=== PATIENT | female | born 1990 | race Caucasian/White ===

== ENCOUNTER 2022-04-09 11:10 | Emergency (ER) | payer OTHER, SELFPAY ==
[2022-04-09 11:20] VITALS: BP 109/71; PULSE 88; RESP 16; TEMP 36.2; O2SAT 98
--- NOTE | 2022-04-09 12:10 | ED.SKABFB ---
HPI - Skin/Abscess/Foreign Bdy General Chief complaint: Skin/Abscess/Foreign Body Stated complaint: poison racheal Time Seen by Provider: 04/09/22 12:11 Source: patient Mode of arrival: ambulatory Limitations: no limitations History of Present Illness HPI narrative: 31-year-old female presents with complaint of poison racheal rash to left forearm, right ankle, abdomen, chest for 4 days. Rash to right ankle is weeping and red, tender. Concern for infection. Has been applying calamine lotion with no relief. States rash started after working in backyard. All systems reviewed and negative except as noted above. Related Data Home Medications Medication Instructions Recorded Confirmed amlodipine 5 mg tablet 5 mg PO DAILY 11/27/19 11/27/19 buspirone 10 mg tablet 10 mg PO DAILY 11/27/19 11/27/19 fluoxetine 20 mg capsule (Prozac) 20 mg PO TID 11/27/19 11/27/19 paliperidone palmitate 234 mg/1.5 234 mg IM Q30D 11/27/19 11/27/19 mL intramuscular syringe (Invega Sustenna) trazodone 100 mg tablet 100 mg PO DAILY 11/27/19 11/27/19 ergocalciferol (vitamin D2) 1,250 cap 04/09/22 mcg (50,000 unit) capsule (Vitamin D2) folic acid 1 mg tablet tablet 04/09/22 Allergies Allergy/AdvReac Type Severity Reaction Status Date / Time ibuprofen Allergy Severe ibuprofen Verified 11/27/19 12:42 ([id number]) metronidazole Allergy Intermediate HAND Verified 11/27/19 12:42 SWELLING AND NUMBNESS Review of Systems Review of Systems: CONSTITUTIONAL: Denies fever, chills, or sweats. EYES: Denies visual changes, redness, or discharge. ENT: Denies rhinorrhea, congestion, sore throat, or otalgia. CARDIOVASCULAR: Denies chest pain, palpitations, or edema. RESPIRATORY: Denies cough or dyspnea. GASTROINTESTINAL: Denies abdominal pain, nausea, vomiting, or diarrhea. GENITOURINARY: Denies dysuria or hematuria. SKIN: Reports rash and itching. MUSCULOSKELETAL: Denies back pain, joint pain, or myalgia. NEUROLOGIC: Denies headache, numbness, or weakness. PSYCHIATRIC: Denies anxiety or depression. All other systems reviewed are negative, except as documented in HPI. [facility] Family History Family History (Updated 02/04/11 @ 09:34 by DOCTOR UNKNOWN) Other Depression Family history of allergic disorder Hypertension Social History Social History Alcohol intake: never Gender identity (if verbalized by the patient): Female Comments At time of signature, agree with nursing past medical, surgical, social and family history. There is no relevant family history pertinent to the presenting complaint. Exam Narrative: GENERAL: This is a well-nourished, well-developed patient, in no apparent distress. HEAD: normocephalic, atraumatic. EYES: PERRL. Sclera clear/white. Vision is grossly intact. EARS: External ears normal NOSE: External nose normal NECK: Neck supple, non-tender without lymphadenopathy, masses or thyromegaly. CARDIOVASCULAR: Regular rate and rhythm without murmurs, gallops, or rubs. RESPIRATORY: Clear to auscultation. Breath sounds equal bilaterally. No wheezes, rales, or rhonchi. SKIN: warm, Dry, intact with good texture and turgor. Erythematous vesicular rash to left anterior forearm, anterior right ankle, left lower abdomen, left side chest. Rash to right ankle is swollen, weeping, erythematous. NEURO: awake, alert, and oriented to person, place and time. There were no obvious focal neurologic abnormalities. EXTREMITIES: Normal range of motion to all extremities. Course Course Level of Care: Express Care Visit Vital Signs Vital signs: Vital Signs Temperature 36.2 C L 04/09/22 11:20 Pulse Rate 88 04/09/22 11:20 Respiratory Rate 16 04/09/22 11:20 Blood Pressure 109/71 04/09/22 11:20 Pulse Oximetry 98 04/09/22 11:20 Oxygen Delivery Room Air 04/09/22 11:20 Temperature 36.2 C L 04/09/22 11:20 Pulse Rate 88 04/09/22 11:20 Respiratory Rate 16 04/09/22 11:20 Blood Pre
== END 2022-04-09 12:22 | disposition home or self-care (01) ==
PROVIDERS: Emergency Provider Nurse Practitioner Family
DX: L25.5 Unspecified contact dermatitis due to plants, except food (principal); I10 Essential (primary) hypertension; Z86.16 Personal history of COVID-19
CPT/HCPCS: 99213; G0463

== ENCOUNTER 2023-04-26 10:44 | Emergency (ER) | payer OTHER, SELFPAY ==
[2023-04-26 10:54] VITALS: BP 126/78; PULSE 99; RESP 16; TEMP 36.7; O2SAT 99
--- NOTE | 2023-04-26 10:55 | ED.SKABFB ---
HPI - Skin/Abscess/Foreign Bdy General Chief complaint: Skin/Abscess/Foreign Body Stated complaint: Pain & swelling in hands & heels Time Seen by Provider: 04/26/23 10:55 Source: patient Mode of arrival: ambulatory Limitations: no limitations History of Present Illness HPI narrative: 32 yo F presents with c/o pain, swelling and redness to palms of hands for several weeks. Also reports the redness and swelling to her right thumb. 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 Does not feel that symptoms are related to that. Used a chemical yesterday for cleaning but has used chemical in the past. denies itching. denies use of any new products, food. no recent insect bite or gardening. All systems reviewed and negative except as noted above. Related Data Home Medications Medication Instructions Recorded Confirmed fluoxetine 20 mg capsule (Prozac) 20 mg PO TID 11/27/19 11/27/19 paliperidone palmitate 234 mg/1.5 234 mg IM Q30D 11/27/19 11/27/19 mL intramuscular syringe (Invega Sustenna) ergocalciferol (vitamin D2) 1,250 cap 04/09/22 mcg (50,000 unit) capsule (Vitamin D2) folic acid 1 mg tablet tablet 04/09/22 Norvasc 04/26/23 buspirone 30 mg tablet mg 04/26/23 haloperidol 5 mg tablet mg 04/26/23 Allergies Allergy/AdvReac Type Severity Reaction Status Date / Time ibuprofen Allergy Severe ibuprofen Verified 04/26/23 11:30 ([id number]) metronidazole Allergy Intermediate HAND Verified 04/26/23 10:55 SWELLING AND NUMBNESS Review of Systems Review of Systems: CONSTITUTIONAL: Denies fever, chills, or sweats. EYES: Denies visual changes, redness, or discharge. ENT: Denies rhinorrhea, congestion, sore throat, or otalgia. CARDIOVASCULAR: Denies chest pain, palpitations, or edema. RESPIRATORY: Denies cough or dyspnea. GASTROINTESTINAL: Denies abdominal pain, nausea, vomiting, or diarrhea. GENITOURINARY: Denies dysuria or hematuria. SKIN: Denies rash or itching.Reports redness, swelling and tenderness to palms of hands, right thumb. MUSCULOSKELETAL: Denies back pain, joint pain, or myalgia. NEUROLOGIC: Denies headache, numbness, or weakness. PSYCHIATRIC: Denies anxiety or depression. All other systems reviewed are negative, except as documented in HPI. [facility] Family History Family History (Updated 02/04/11 @ 09:34 by DOCTOR UNKNOWN) Other Depression Family history of allergic disorder Hypertension Social History Social History Alcohol intake: never Gender identity (if verbalized by the patient): Female Comments At time of signature, agree with nursing past medical, surgical, social and family history. There is no relevant family history pertinent to the presenting complaint. Exam Narrative: GENERAL: This is a well-nourished, well-developed patient, in no apparent distress. HEAD: normocephalic, atraumatic. EYES: PERRL. Sclera clear/white. Vision is grossly intact. EARS: External ears normal NOSE: External nose normal NECK: Neck supple, non-tender without lymphadenopathy, masses or thyromegaly. CARDIOVASCULAR: Regular rate and rhythm without murmurs, gallops, or rubs. RESPIRATORY: Clear to auscultation. Breath sounds equal bilaterally. No wheezes, rales, or rhonchi. NEURO: awake, alert, and oriented to person, place and time. There were no obvious focal neurologic abnormalities. EXTREMITIES: areas of erythema, swelling, tenderness to palms of hands. no open wounds or drainage. decreased ROM to R thumb due to pain. Course Course Level of Care: Express Care Visit Vital Signs Vital signs: Vital Signs Temperature 36.7 C 04/26/23 10:54 Pulse Rate 99 04/26/23 10:54 Respiratory Rate 16 04/26/23 10:54 Blood Pressure 126/78 04/26/23 10:54 Pulse Oximetry 99 04/26/23 10:54 Oxygen Delivery Room Air 04/26/23 10:54 Temperature 36.7 C 04/26/23 10:54 Pulse Rate 99 04/26/23 10:54 Respiratory Rate 16
== END 2023-04-26 11:23 | disposition home or self-care (01) ==
PROVIDERS: Emergency Provider Nurse Practitioner Family; PCP Internal Medicine
DX: R21 Rash and other nonspecific skin eruption (principal); I10 Essential (primary) hypertension; F41.9 Anxiety disorder, unspecified; F32.A Depression, unspecified; Z86.16 Personal history of COVID-19; F20.9 Schizophrenia, unspecified
CPT/HCPCS: 99213; G0463

== ENCOUNTER 2023-05-08 17:34 | Emergency (ER) | payer MEDICARE, MEDICAID, SELFPAY ==
[2023-05-08 18:00] VITALS: BP 129/87; PULSE 89; RESP 16; TEMP 36.7; O2SAT 98
--- NOTE | 2023-05-08 19:04 | ED.SKABFB ---
HPI - Skin/Abscess/Foreign Bdy General Chief complaint: Skin/Abscess/Foreign Body Stated complaint: painful hands Time Seen by Provider: 05/08/23 19:04 Source: patient Mode of arrival: ambulatory Limitations: no limitations History of Present Illness HPI narrative: 32 y/o female presented for c/o redness and swelling in patches to bilateral hands for over one month. Patient was seen for the same about 2 weeks ago, given steroid and abx, which helped, but after completing the steroid pack 2 days ago -which she took a tablet of each day, she reports the symptoms are returning but the redness is on different parts of the hands. Reports decreased range of motion with flexing due to the swelling. Patient is scheduled to follow-up with her PCP regarding the symptoms, but not until 05/17/2023. Denies lip, tongue, or throat swelling, shortness of breath or wheezing. Denies changes to soap, detergent, lotion, or any other exposures. No one else in the house or any contacts with similar symptoms. Related Data Home Medications Medication Instructions Recorded Confirmed fluoxetine 20 mg capsule (Prozac) 20 mg PO TID 11/27/19 11/27/19 paliperidone palmitate 234 mg/1.5 234 mg IM Q30D 11/27/19 11/27/19 mL intramuscular syringe (Invega Sustenna) ergocalciferol (vitamin D2) 1,250 cap 04/09/22 mcg (50,000 unit) capsule (Vitamin D2) folic acid 1 mg tablet tablet 04/09/22 Norvasc 04/26/23 buspirone 30 mg tablet mg BID 04/26/23 haloperidol 5 mg tablet mg 04/26/23 Allergies Allergy/AdvReac Type Severity Reaction Status Date / Time ibuprofen Allergy Severe ibuprofen Verified 05/08/23 18:52 ([id number]) metronidazole Allergy Intermediate HAND Verified 05/08/23 18:52 SWELLING AND NUMBNESS Review of Systems Review of Systems: CONSTITUTIONAL: Denies body aches, fever, chills, or sweats. EYES: Denies visual changes, redness, or discharge. ENT: Denies rhinorrhea, congestion CARDIOVASCULAR: Denies chest pain, palpitations, or edema. RESPIRATORY: Denies cough or dyspnea. GASTROINTESTINAL: Denies abdominal pain, nausea, vomiting, or diarrhea. SKIN: Per HPI MUSCULOSKELETAL: Denies back pain, joint pain, or myalgia. NEUROLOGIC: Denies headache, numbness, tingling, or weakness. [facility] Past Medical History Medical History (Updated 05/08/23 @ 20:10 by Amanda Ward APRN) Anxiety and depression Hypertension Schizophrenia Surgical History Surgical History (Updated 05/08/23 @ 20:10 by Amanda Ward APRN) Hx of tonsillectomy Family History Family History Other Depression Family history of allergic disorder Hypertension Social History Social History Alcohol intake: never Gender identity (if verbalized by the patient): Female Comments At time of signature, I have reviewed and agree with nursing past medical, surgical, social and family history unless otherwise noted. Please see nursing chart for further information. There is no relevant family history pertinent to the presenting complaint Exam Narrative: GENERAL: Well-appearing HEAD: Normocephalic, atraumatic. EYES: conjunctivae clear, and EOMI. ENT: Mucous membranes moist. Oropharynx without edema, erythema or lesions. NECK: Supple. No lymphadenopathy CHEST: Clear to auscultation. HEART: Regular rate and rhythm. SKIN: Warm, dry. Left palm with erythematous patch over the 5th metacarpal; right palm with erythematous patch over the 2nd digit proximal phalanx, mild swelling and tenderness to the sites, no lesions/open areas/nodules, slightly limited ROM to the hands due to swelling NEURO: Alert and oriented x3. Course Course Emergency Course: Patient is aware of diagnosis, understands and agrees to treatment plan. Anticipatory guidance given. Patient agrees to follow-up as directed and is awar
== END 2023-05-08 19:28 | disposition home or self-care (01) ==
PROVIDERS: Emergency Provider Nurse Practitioner Family
DX: M79.642 Pain in left hand (principal); M79.641 Pain in right hand; I10 Essential (primary) hypertension; F41.9 Anxiety disorder, unspecified; F32.A Depression, unspecified; F20.9 Schizophrenia, unspecified
CPT/HCPCS: 99213; G0463

== ENCOUNTER 2023-08-05 10:24 | Emergency (ER) | payer MEDICARE, MEDICAID, SELFPAY ==
--- NOTE | ~2023-08-05 | XR_ITS ---
EXAMINATION: XR knee LT min 4V DATE: 08/05/2023 11:02 INDICATION: Left knee pain TECHNIQUE: Four views of the left knee were obtained. COMPARISON: None. FINDINGS: Alignment is normal. No fracture or osteochondral lesion. Joint spaces are normal with no e rosions. No joint effusion/synovitis. Soft tissues are unremarkable. IMPRESSION: 1. No acute osseous abnormality. Reviewed, dictated and finalized at location F.
--- NOTE | 2023-08-05 10:28 | ED.LOWEXIN ---
HPI - Extremity Injury (Lower) General Chief Complaint: Extremity Injury, Lower Stated Complaint: Fall Left Knee Pain Time Seen by Provider: 08/05/23 10:55 Source: patient and RN notes reviewed Mode of arrival: ambulatory Limitations: no limitations History of Present Illness HPI Narrative: 33-year-old female presents with concern for injury to her left knee. Reports she tripped and fell today landing on her knee. Reports she used ice, knee brace without relief. Reports anterior knee pain and popping in the back and sides of her knee. She reports pain at rest, worsening pain with weight-bearing, flexion and extension. MD complaint: knee injury Related Data Home Medications Medication Instructions Recorded Confirmed fluoxetine 20 mg capsule (Prozac) 20 mg PO TID 11/27/19 08/05/23 ergocalciferol (vitamin D2) 1,250 1 cap PO DAILY 04/09/22 08/05/23 mcg (50,000 unit) capsule (Vitamin D2) folic acid 1 mg tablet 1 tablet PO DAILY 04/09/22 Norvasc 1 cap PO DIRECTED 04/26/23 08/05/23 buspirone 30 mg tablet 30 mg PO BID 04/26/23 08/05/23 haloperidol 5 mg tablet 5 mg PO DAILY 04/26/23 08/05/23 Allergies Allergy/AdvReac Type Severity Reaction Status Date / Time metronidazole Allergy Intermediate HAND Verified 08/05/23 10:32 SWELLING AND NUMBNESS Review of Systems Review of Systems: CONSTITUTIONAL: Denies malaise, chills, sweats, or fever. SKIN: Denies rash or itching, open skin, laceration, abrasion, redness, warmth, swelling. MUSCULOSKELETAL: Reports left knee pain NEUROLOGIC: Denies numbness, weakness All systems reviewed & are unremarkable except as noted in HPI and below PMFSH Past Medical History Medical History (Updated 08/05/23 @ 11:27 by Syeda Lim NP) Anxiety and depression Hypertension Schizophrenia Surgical History Surgical History (Updated 05/08/23 @ 20:10 by Amanda Garza APRN) Hx of tonsillectomy Family History Family History Other Depression Family history of allergic disorder Hypertension Social History Social History Alcohol intake: never Gender identity (if verbalized by the patient): Female Comments At time of signature, agree with nursing past medical, surgical, social and family history. There is no relevant family history pertinent to the presenting complaint Exam Narrative: GENERAL: Well-appearing, well-nourished, and in no acute distress. HEAD: Normocephalic, atraumatic. EYES: PERRLA, conjunctivae clear NECK: Supple. CHEST: Speaks in full sentences. No respiratory distress. HEART: Regular rate and rhythm. Normal and equal peripheral pulses. EXTREMITIES: Left knee has normal strength and sensation, grossly normal range of motion. Mild edema, no erythema, warmth, or ecchymosis. Normal sensation with sensitivity to light touch and pain. Anterior tenderness. No open wounds, no skin tenting, no devitalized tissue or atrophy, no trophic changes, no obvious deformity, alignment normal, nearby joints and structures intact. Distal pulses palpable and equal bilaterally, skin warm, dry, pink. Capillary refill less than 3 seconds. SKIN: Warm, dry, no rash. NEURO: Alert and oriented x3. PSYCH: Normal mood and affect Course Course Emergency Course: Patient is aware of diagnosis, understands and agrees to treatment plan. Anticipatory guidance given. Patient agrees to follow-up as directed and is aware of reasons to seek care at the emergency department. Portions of this record may have been created with voice recognition software Level of Care: Express Care Visit Vital Signs Vital signs: Reviewed. MDM - Extremity Injury (Lower) MDM Narrative Medical decision making narrative: Patients injury and pain is consistent with musculoskeletal etiology. No signs of neurological or vascular compromise on exam. Compartments and tissu
[2023-08-05 10:40] VITALS: BP 124/74; PULSE 77; RESP 16; TEMP 36.6; O2SAT 98
== END 2023-08-05 11:30 | disposition home or self-care (01) ==
PROVIDERS: Emergency Provider Nurse Practitioner; PCP Nurse Practitioner Family
DX: S83.92XA Sprain of unspecified site of left knee, initial encounter (principal); I10 Essential (primary) hypertension; Z79.899 Other long term (current) drug therapy; W01.0XXA Fall on same level from slipping, tripping and stumbling without subsequent striking against object, initial encounter
CPT/HCPCS: 73564; 99213; G0463

== ENCOUNTER 2024-09-12 11:05 | Emergency (ER) | payer OTHER, SELFPAY ==
[2024-09-12 11:22] VITALS: BP 122/79; PULSE 79; RESP 16; TEMP 36.1; O2SAT 97
--- NOTE | 2024-09-12 11:31 | ED.DENTAL ---
HPI - Dental/Oral General Chief complaint: Dental/Oral Stated complaint: left side tooth pain Time Seen by Provider: 09/12/24 11:30 Source: patient Mode of arrival: ambulatory Limitations: no limitations History of Present Illness HPI Narrative: Temi is a 34-year-old patient presenting to the clinic today with complaints of left-sided dental pain. They report that your having left posterior upper dental pain. Symptoms have been going on for the past few days but they been trying to save up money to go see the dentist over the past couple months. No fever or chills. Related Data Home Medications Medication Instructions Recorded Confirmed fluoxetine 20 mg capsule (Prozac) 20 mg PO TID 11/27/19 09/12/24 ergocalciferol (vitamin D2) 1,250 1 cap PO DAILY 04/09/22 09/12/24 mcg (50,000 unit) capsule (Vitamin D2) folic acid 1 mg tablet 1 tablet PO DAILY 04/09/22 09/12/24 Norvasc 1 cap PO DIRECTED 04/26/23 09/12/24 buspirone 30 mg tablet 30 mg PO BID 04/26/23 09/12/24 haloperidol 5 mg tablet 5 mg PO DAILY 04/26/23 09/12/24 haloperidol decanoate 100 mg/mL mg IM 09/12/24 intramuscular solution Allergies Allergy/AdvReac Type Severity Reaction Status Date / Time metronidazole Allergy Intermediate HAND Verified 09/12/24 11:34 SWELLING AND NUMBNESS Review of Systems Review of Systems: Pertinent positives per HPI. Patient denies any fever, chills, rash, headache, visual changes, dizziness, cough, runny nose, sore throat, shortness of breath, chest pain, palpitations, nausea, vomiting, diarrhea, constipation, abdominal pain, or any urinary issues. [facility] Past Medical History Medical History (Updated 09/12/24 @ 11:35 by Quentin Brewer APRN) Anxiety and depression Hypertension Schizophrenia Surgical History Surgical History Hx of tonsillectomy Family History Family History Other Depression Family history of allergic disorder Hypertension Social History Social History Alcohol intake: never Gender identity (if verbalized by the patient): Female Comments At the time of my signature, I reviewed and agree with the nursing past medical, surgical, social, and family history. There is no relevant family history pertinent to the patient complaint. Exam Narrative: General: Well-developed, well nourished, in no apparent distress Head: Normocephalic, atraumatic Eyes: Pupils equally round and reactive to light bilaterally, EOM intact, sclera and conjunctive clear, no discharge, lids normal Ears: TMs intact and clear, ear canals clear, no drainage, grossly hearing normal. Nose: Nares patent, no discharge, no inflammation, no sinus tenderness. Mouth: Oropharynx without lesions or masses, very poor dentition, MMM. Dental infection to the left upper posterior tooth with surrounding swelling, no palpable abscess Neck: Supple, trachea midline, no enlargement of anterior or posterior cervical nodes, no thyroid masses or goiter palpable. Cardio: Regular rate and rhythm, s1 and s2 normal, no murmur appreciated. Resp: Clear to auscultation bilaterally anteriorly and posteriorly, no rhonchi, rales, wheezing or rubs Course Course Emergency Course: Portions of this record may have been created with voice recognition software. Level of Care: Express Care Visit Vital Signs Vital signs: Vital Signs Temperature 36.1 C L 09/12/24 11:22 Pulse Rate 79 09/12/24 11:22 Respiratory Rate 16 09/12/24 11:22 Blood Pressure 122/79 09/12/24 11:22 Pulse Oximetry 97 09/12/24 11:22 Oxygen Delivery Room Air 09/12/24 11:22 Temperature 36.1 C L 09/12/24 11:22 Pulse Rate 79 09/12/24 11:22 Respiratory Rate 16 09/12/24 11:22 Blood Pressure 122/79 09/12/24 11:22 Pulse Oximetry 97 09/12/24 11:22 Oxygen Delivery Room Air 09/12/24 11:22 Vital signs reviewed MDM - Dental/Oral MDM Narrative Medical decision making narrative: At the time of visit patient is resting comfortably on the exam table. Patient appears to be nontoxic. Plan: I suspect a dental infection. Prescription for Augmentin was sent to the pharmacy. Supportive measures were discussed with the patient and they voiced understanding discharge instructions and agrees to treatment plan. Return precautions reviewed Differential Diagnosis Differential diagnosis: Likely gingival abscess, dental caries, toothache, dental abscess, fracture of tooth and aphthous ulcer Discharge Plan Discharge Clinical Impression: Dental infection Patient Disposition: Home, Self-Care Condition: Stable Instructions: Antibiotic Form, Dental Abscess (ED) Additional Instructions: Increase fluids and stay well hydrated May take Tylenol/Motrin as needed for pain May apply cool compress to the affected area to help alleviate pain and swelling Take Augmentin as prescribed Go to the emergency room if you develop worsening swelling, increase in pain, fever, or any other concerning symptoms Follow-up with your dentist as soon as possible Prescriptions: New amoxicillin-pot clavulanate 875-125 mg tablet 1 tablet PO Q12H 10 Days Qty: 20 0RF No Action folic acid 1 mg tablet 1 tablet PO DAILY ergocalciferol (vitamin D2) [Vitamin D2] 1,250 mcg (50,000 unit) capsule 1 cap PO DAILY fluoxetine [Prozac] 20 mg Capsule 20 mg PO TID haloperidol 5 mg tablet 5 mg PO DAILY Norvasc 1 cap PO DIRECTED buspirone 30 mg tablet 30 mg PO BID Follow-up/Referrals: PHYSICIAN,[employer] [Primary Care Provider] - Stand Alone Forms: Work/School Release IP Time of Disposition: 11:34 Quality NIHSS Nursing Documentation ED NIHSS nursing documentation: reviewed/agree
== END 2024-09-12 11:41 | disposition home or self-care (01) ==
PROVIDERS: Emergency Provider Nurse Practitioner Family
DX: K04.7 Periapical abscess without sinus (principal); I10 Essential (primary) hypertension; F41.9 Anxiety disorder, unspecified; F32.A Depression, unspecified; F20.9 Schizophrenia, unspecified
CPT/HCPCS: 99213; G0463

== ENCOUNTER 2025-05-04 14:19 | Emergency (ER) | payer OTHER, MEDICAID, SELFPAY ==
--- NOTE | ~2025-05-04 | CT_ITS ---
EXAMINATION: CT pelvis w con DATE: 05/04/2025 16:45 INDICATION: Abscess? Left groin/pelvic region. TECHNIQUE: Computed tomography (CT) of the pelvis was performed with 100 mL Omnipaque 350 intravenous contrast. Automated exposure control and iterative reconstruction technique were employed. The dose- length product was 1218.34 mGy-cm. COMPARISON: CT abdomen pelvis 05/25/2019 FINDINGS: Distal large and small bowel is normal. Normal appendix. Normal uterus and bilateral ovarie s. Normal urinary bladder. 2.2 x 3.6 cm rim-enhancing fluid collection extending from the dermis into the subcutaneous fat in the left lower quadrant. Multiple additional 5-8mm dermal cysts with surroun ding enhancement/inflammation are present in the right mons, right inguinal crease, bilateral medial gluteal, and bilateral medial thighs. Enlarged left inguinal lymph node. IMPRESSION: 3.6 cm left lower quadrant dermal/subcutaneous abscess or infected/inflamed cyst. Multiple additional subcentimeter dermal abscesses or infected/inflamed cysts are present along the r ight inguinal canal, right mons, bilateral medial gluteal skin, and bilateral medial thighs. Left ing uinal lymphadenopathy. Reviewed, dictated and finalized at location K. IMPRESSION: 3.6 cm left lower quadrant dermal/subcutaneous abscess or infected/inflamed cys t. Multiple additional subcentimeter dermal abscesses or infected/inflamed cysts a re present along the right inguinal canal, right mons, bilateral medial gluteal skin, and bilateral medial thighs. Left inguinal lymphadenopathy.
[2025-05-04 15:57] LABS: Basophils Percent Auto 0.3 % (0.2-1.2); Eosinophils Absolute Auto 0.2 K/mm3 (0-0.3); Eosinophils Percent Auto 1.3 % (0-4.4); Hematocrit 43.8 % (37.0-47.0); Hemoglobin 14.5 g/dL (12.0-15.0); Immature Granulocyte Absolute 0.07 K/mm3 (0.00-0.031); Immature Granulocyte Percent A 0.6 % (0-0.5); Lymphocytes Absolute Auto 2.93 K/mm3 (0.9-3.2); Lymphocytes Percent Auto 23.4 % (18.3-44.2); Mean Corpuscular HGB Conc 33.1 g/dl (32-36); Mean Corpuscular Hemoglobin 29.8 pg (26-34); Mean Corpuscular Volume 89.9 fl (80-100); Monocytes Absolute Auto 0.7 K/mm3 (0.1-0.6); Monocytes Percent Auto 5.3 % (2.6-8.5); Neutrophils Absolute Auto 8.7 K/mm3 (1.3-6.7); Neutrophils Percent Auto 69.1 % (45.5-73.1); Platelet Count Result 307 k/mm3 (150-375); Red Blood Count 4.87 M/mm3 (4.2-5.4); Red Cell Distribution Width 12.7 % (11.5-14.5); White Blood Count 12.5 K/mm3 (4.5-10.0)
[2025-05-04 16:10] LABS: Anion Gap 10 mmol/L (4-12); Blood Urea Nitrogen 10 mg/dL (7-17); Calcium 9.4 mg/dL (8.4-10.2); Carbon Dioxide 22 mmol/L (22-30); Chloride 106 mmol/L (98-107); Estimated Glomerular Filt Rate > 60; Glucose 95 mg/dL (65-110); Sodium 138 mmol/L (137-145)
[2025-05-04 16:31] VITALS: BP 146/88; PULSE 86; RESP 16; TEMP 36.4; O2SAT 98
[2025-05-04] MEDS: KETOROLAC 30 MG/ML VIAL (*BKC) IV PUSH (16:35)
--- NOTE | 2025-05-04 16:37 | ED_ITS ---
HPI - Skin/Abscess/Foreign Bdy General Chief complaint: Skin/Abscess/Foreign Body Stated complaint: cyst lower abdomen Time Seen by Provider: 05/04/25 14:30 Source: patient Mode of arrival: ambulatory Limitations: no limitations History of Present Illness HPI narrative: Patient is a 34-year-old female who presents the ED with report of abscess to her left lower abdomen. Patient reports she noticed an abscess to her left lower abdomen/pelvis region several days ago. States it has continued to worsen in pain. She does have history of hidradenitis suppurativa and reports frequent abscesses. Has not had any drainage from this abscess. Reports subjective fever last night. Denies history of diabetes. Related Data Home Medications ?Medication ?Instructions ?Recorded ?Confirmed ?Last Taken ?Type fluoxetine 20 mg capsule (Prozac) 20 mg PO TID 11/27/19 09/12/24 Unknown History ergocalciferol (vitamin D2) 1,250 1 cap PO DAILY 04/09/22 09/12/24 Unknown History mcg (50,000 unit) capsule (Vitamin D2) folic acid 1 mg tablet 1 tablet PO DAILY 04/09/22 09/12/24 Unknown History Norvasc 1 cap PO DIRECTED 04/26/23 09/12/24 Unknown History buspirone 30 mg tablet 30 mg PO BID 04/26/23 09/12/24 Unknown History haloperidol 5 mg tablet 5 mg PO DAILY 04/26/23 09/12/24 Unknown History haloperidol decanoate 100 mg/mL mg IM 09/12/24 Unknown History intramuscular solution Allergies Allergy/AdvReac Type Severity Reaction Status Date / Time metronidazole Allergy Intermediate HAND Verified 05/04/25 14:21 SWELLING AND NUMBNESS Review of Systems 2 Review of Systems: All systems reviewed & are unremarkable except as noted in HPI. All systems reviewed & are unremarkable except as noted in HPI and below PMFSH Past Medical History Medical History Anxiety and depression Hypertension Schizophrenia Surgical History Surgical History Hx of tonsillectomy Family History Family History Other Depression Family history of allergic disorder Hypertension Social History Social History Alcohol intake: never Gender identity (if verbalized by the patient): Female Exam 2 Narrative: GENERAL: Well appearing, well-nourished, non-toxic, in no acute distress. HEAD: Normocephalic, atraumatic. RESPIRATORY: Airway patent, respirations nonlabored. CARDIOVASCULAR: Regular rate and rhythm ABDOMINAL: Soft, TTP in L lower abdomen. Large erythematous region with induration and few cm area of central focal fluctuance, focal tenderness. No active drainage. Nondistended. Normoactive BS. MUSCULOSKELETAL: Moves all extremities. No gross deformities. SKIN: Warm, dry, normal color. NEURO: A&O X3. Speech clear. PSYCHIATRIC: Appropriate mood and affect. Normal interaction. Course Vital Signs Vital signs: Vital Signs Temperature 97.6 F 05/04/25 16:31 Pulse Rate 86 05/04/25 16:31 Respiratory Rate 16 05/04/25 16:31 Blood Pressure 146/88 H 05/04/25 16:31 Pulse Oximetry 98 05/04/25 16:31 Temperature 97.6 F 05/04/25 16:31 Pulse Rate 86 05/04/25 16:31 Respiratory Rate 16 05/04/25 16:31 Blood Pressure 146/88 H 05/04/25 16:31 Pulse Oximetry 98 05/04/25 16:31 Procedures Abscess I/D abdomen: Date of Incision: 05/04/25 Time of Incision: 17:20 Side (if applicable): left Sedation/analgesia: none Local Anesthetic: lidocaine 1% Amount of anesthesia used (mL): 5 Technique: incised with #11 blade and probed loculations Amount of fluid expressed (mL): 10 Irrigation: Yes Packing used?: none I&D Results: Pus and Blood Complications: other (none) MDM - Skin/Abscess/Foreign Bdy MDM Narrative Medical decision making narrative: Patient presented to ED with concern for abscess to her left lower abdomen. History of hidradenitis suppurativa. Reports subjective fevers last night. Patient afebrile here today. Laboratory studies with white count of 12.5. Stable electrolytes. Normal blood sugar. CT scan of pelvis was obtained to evaluate for size and depth of abscess. Showing 3.6 cm superficial abscess in area of concern. Does also show small scattered other abscesses, too small to drain. Past this with patient. She typically uses Hibiclens and rubbing alcohol on the areas that are typically affected by her HS. She denies any issues with any other lesions at this time. I&D was performed of abscess by Dr. Zuñiga. Patient feeling immensely better after procedure. Will be started on antibiotics. Advised close follow-up and continued wound care. Given strict return precautions. She is in agreement with plan. Feels comfortable going home. Discharged in stable condition. Medical Records Attestation: I reviewed the patient's medical records. Lab Data Attestation: I reviewed the patient's lab results. 05/04/25 15:49 05/04/25 15:49 Labs: Lab Results 05/04/25 Range/Units 15:49 WBC 12.5 H (4.5-10.0) K/mm3 RBC 4.87 (4.2-5.4) M/mm3 Hgb 14.5 (12.0-15.0) g/dL Hct 43.8 (37.0-47.0) % MCV 89.9 (80-100) fl MCH 29.8 (26-34) pg MCHC 33.1 (32-36) g/dl RDW 12.7 (11.5-14.5) % Plt Count 307 (150-375) k/mm3 MPV 10.0 (7.4-10.4) fl Immature Gran % (Auto) 0.6 H (0-0.5) % Neut % (Auto) 69.1 (45.5-73.1) % Lymph % (Auto) 23.4 (18.3-44.2) % [place] % (Auto) 5.3 (2.6-8.5) % Eos % (Auto) 1.3 (0-4.4) % Baso % (Auto) 0.3 (0.2-1.2) % Lymph # (Auto) 2.93 (0.9-3.2) K/mm3 [place] # (Auto) 0.7 H (0.1-0.6) K/mm3 Eos # (Auto) 0.2 (0-0.3) K/mm3 Baso # (Auto) 0.0 (0.0-0.1) K/mm3 Abs Immat Gran (auto) 0.07 H (0.00-0.031) K/mm3 Absolute Neuts (auto) 8.7 H (1.3-6.7) K/mm3 Absolute Nucleated RBC 0.000 (0.0-0.012) K/mm3 Nucleated RBC % 0.0 (0.0-0.2) % Sodium 138 (137-145) mmol/L Potassium 4.0 (3.4-5.0) mmol/L Chloride 106 (98-107) mmol/L Carbon Dioxide 22 (22-30) mmol/L Anion Gap 10 (4-12) mmol/L BUN 10 (7-17) mg/dL Creatinine 0.85 (0.7-1.0) mg/dL Estim Creat Clear Calc Not Reportable Estimated GFR > 60 (59 - ) Glucose 95 (65-110) mg/dL Calcium 9.4 (8.4-10.2) mg/dL Imaging Data Attestation: I personally reviewed and interpreted this imaging study as follows: Radiologist's impression: ITS Impressions Pelvis CT 05/04/25 16:50 IMPRESSION: 3.6 cm left lower quadrant dermal/subcutaneous abscess or infected/inflamed cyst. Multiple additional subcentimeter dermal abscesses or infected/inflamed cysts are present along the right inguinal canal, right mons, bilateral medial gluteal skin, and bilateral medial thighs. Left inguinal lymphadenopathy. Discharge Plan Discharge Clinical Impression: Abscess of abdominal wall, Hidradenitis suppurativa Patient Disposition: Home Condition: Stable Instructions: Antibiotic Form, Abscess (ED) Additional Instructions: Take antibiotics as prescribed. Keep wound clean, dry, bandaged. Continue Tylenol/ibuprofen as needed for pain. Follow-up with your primary care doctor for further evaluation if needed. Return to an ED for new or worsening concerns. Patient Language: Yakut Prescriptions: New sulfamethoxazole-trimethoprim [Bactrim DS] 800-160 mg tablet 1 tablet PO Q12H 10 Days Qty: 20 0RF No Action folic acid 1 mg tablet 1 tablet PO DAILY ergocalciferol (vitamin D2) [Vitamin D2] 1,250 mcg (50,000 unit) capsule 1 cap PO DAILY fluoxetine [Prozac] 20 mg Capsule 20 mg PO TID haloperidol 5 mg tablet 5 mg PO DAILY Norvasc 1 cap PO DIRECTED buspirone 30 mg tablet 30 mg PO BID amoxicillin-pot clavulanate 875-125 mg tablet 1 tablet PO Q12H 10 Days Qty: 20 0RF haloperidol decanoate 100 mg/mL solution IM Follow-up/Referrals: Jenn Graff MD [Physician] - (PRIMARY CARE) PHYSICIAN,CREDIT CONTROL ASSISTANT [Primary Care Provider] - Time of Disposition: 17:53
[2025-05-04] MEDS: SULFAMETHOXAZOLE/TRIMETHOPRIM 800/160 MG DS TABLET 1 TAB PO (17:58)
== END 2025-05-04 18:15 | disposition home or self-care (01) ==
PROVIDERS: Emergency Provider Physician Assistant
DX: L02.211 Cutaneous abscess of abdominal wall (principal); L73.2 Hidradenitis suppurativa; F41.9 Anxiety disorder, unspecified; F32.A Depression, unspecified; F20.9 Schizophrenia, unspecified; Z79.899 Other long term (current) drug therapy
CPT/HCPCS: 10060; 36415; 72193; 80048; 85025; 96374; 99284; A9270; J1885; Q9967